=== PATIENT | male | born 1995 | race American Indian/Alaskan Native ===

== ENCOUNTER 2020-05-18 15:03 | Emergency (ER) | payer SELFPAY ==
[2020-05-18 16:15] VITALS: BP 111/79
--- NOTE | 2020-05-18 17:01 | XRay Report ---
CHEST PA AND LATERAL VIEWS INDICATION: Chest pain. COMPARISON: None. FINDINGS: Support devices: None. Heart: Within normal limits. Lungs/Pleura: No acute pulmonary or pleural findings. IMPRESSION: 1. No acute findings. Signer Name: Fabrizio Traylor MD Signed: 05/18/2020 4:57 PM Workstation Name: [id number]
== END 2020-05-18 19:58 ==
LOC: ED 15:03
DX: R07.89 Other chest pain (principal); Z53.21 Procedure and treatment not carried out due to patient leaving prior to being seen by health care provider
CPT/HCPCS: 71046; 93005